=== PATIENT | female | born 1935 | race Caucasian/White ===

== ENCOUNTER 2022-03-01 17:36 | Inpatient (IN) ==
--- NOTE | 2022-03-01 17:59 | Emergency Department Note ---
Trauma HPI <Josh Estes PA-C - Last Filed: 03/01/22 19:11> General Chief Complaint: Trauma Stated Complaint: fall Time Seen by Provider: 03/01/22 17:52 Source: patient Mode of arrival: ambulatory History of Present Illness HPI Narrative: Narrative: 87-year-old female with a history of osteoporosis, chronic knee and back pain who is anticoagulated on Eliquis for "her heart". She was taking her afternoon walk with her dog when she lost her footing and fell onto her left side impacting her left shoulder. EMS says she hit her head she says she does not think she hit her head. She did not lose consciousness has had no confusion, nausea or vomiting. She has no contusion or deformity of her scalp. She states her hip and just above her knee on the left side her chief complaint. She has full range of motion in her left arm and has no bony tenderness anywhere other than her leg. Related Data Home Medications Medication Instructions Recorded Confirmed meclizine 12.5 mg tablet 12.5 mg PO QDAY 03/13/20 03/01/22 amiodarone 200 mg tablet 200 mg PO BID 01/28/22 03/01/22 gabapentin 100 mg capsule 100 mg PO .COMPLEX cap 01/28/22 03/01/22 memantine 10 mg tablet 10 mg PO BID 01/28/22 02/14/22 red yeast rice 600 mg capsule 600 mg PO QDAY 01/28/22 02/14/22 amlodipine 5 mg tablet 5 mg PO QDAY 02/14/22 03/01/22 apixaban 5 mg tablet (Eliquis) 5 mg PO QHS 02/14/22 03/01/22 levothyroxine 75 mcg tablet 75 mcg PO QDAY 02/14/22 03/01/22 memantine PO BID 03/01/22 Previous Rx's Medication Instructions Recorded diclofenac sodium 1 % topical gel 1 % TOPICAL QID #100 g 08/30/20 lidocaine 5 % topical patch 1 patch TOPICAL QDAY PRN #15 ea 02/14/22 Allergies Allergy/AdvReac Type Severity Reaction Status Date / Time No Known Drug Allergies Allergy Verified 02/14/22 10:02 Review of Systems <Josh Estes PA-C - Last Filed: 03/01/22 19:11> ROS ROS Narrative: Narrative: All systems ED: reviewed and negative except as stated. PFSH <Josh Estes PA-C - Last Filed: 03/01/22 19:11> Narrative Patient History Narrative: Narrative: Medical/Surgical/Family History All Active Problems (Updated 03/01/22 @ 19:11 by Josh Estes PA-C) Closed hip fracture (Acute) Right knee pain (Chronic) Chronic low back pain (Acute) Sore throat (Acute) Back pain, lumbosacral (Acute) No pertinent past surgical history (Chronic) Osteoporosis (Chronic) Chronic pain (Chronic) Peripheral neuropathy (Chronic) Acute bronchitis (Chronic) Knee effusion, left (Chronic) Hematoma of left lower extremity (Chronic) Medical History Acute bronchitis Chronic low back pain Chronic pain Hematoma of left lower extremity Knee effusion, left Osteoporosis Peripheral neuropathy Right knee pain Sore throat Surgical History No pertinent past surgical history Family History Other No pertinent family history Social History Smoking Status: Never smoker Alcohol Intake Frequency: does not drink Substance Use: does not use Exam <Josh Estes PA-C - Last Filed: 03/01/22 19:11> Narrative Narrative: Narrative: Gen: No acute distress Eyes: PERRL, no conjunctival injection , and symmetrical lids. Sclerae non icteric HENMT: Normocephalic Atraumatic head, external nose and ears. Moist MM. [place] no signs of trauma or impact of the head no hematoma on the posterior scalp Neck: Symmetric, trachea midline, no midline neck tenderness, full range of motion of the neck CVS: +S1/S2, No murmurs or gallops. Radial pulses 2+ and equal bilat. No swelling RESP: Unlabored respiratory effort . Clear to auscultation bilaterally (CTAB). No noted wheezes rales or ronchi. GI: Nontender/Nondistended (NTND), No focal tenderness MSK: Patient has deformity of the left hip and distal left femur. DP and PT are 2+ at the distal extremity. Patient has no sensation of the feet bilaterally but this is due to her chronic neuropathy. No deformity of the clavicles or shoulder. Skin: Warm, Dry . No rashes or lesions . Cap refill less than 2. Neuro: No focal neurological deficit Psych: Awake, Alert, & Oriented (AAO) x3. Appropriate mood and affect . Course <Josh Estes PA-C - Last Filed: 03/01/22 19:11> Vital Signs Vital signs: Vital Signs Temperature 97.6 F 03/01/22 17:43 Pulse Rate 78 03/01/22 17:43 Respiratory Rate 16 03/01/22 17:43 Blood Pressure 165/86 03/01/22 17:43 Pulse Oximetry (%) 97 03/01/22 17:43 Temperature 97.6 F 03/01/22 17:43 Pulse Rate 57 L 03/01/22 21:00 Respiratory Rate 16 03/01/22 19:45 Blood Pressure 129/66 03/01/22 21:00 Pulse Oximetry (%) 99 03/01/22 21:00 MDM <Josh Estes PA-C - Last Filed: 03/01/22 19:11> MDM Narrative Medical decision making narrative: Narrative: Patient had a fall on her afternoon walk. She did not impact her head but has a deformity of the left hip and left distal femur. She be evaluated with a hip and femur x-ray. She is pain controlled after being given fentanyl by EMS. She will be reevaluated after imaging. Left hip: Comminuted complex left hip fracture Femur: distal femur intact CXR: normal Patient has left hip fracture and we referred to Ortho. Dr. Jerome we consulted. Dr. Jerome: Admit to hospitalist n.p.o. after midnight EKG: Sinus rhythm at a rate of 73 bpm with prolonged PA interval at 300 ms. Right bundle branch block, no ST or T wave elevation or depression to suggest acute ischemia. Dr Pringle: Graciously agreed to accept the patient and requested we order an APTT in addition to the other lab work ordered. Patient will remain n.p.o. after midnight and will be followed on by Dr. Jerome tomorrow. Lab Data Result diagrams: 03/01/22 18:37 03/01/22 18:37 Labs: Lab Results 03/01/22 03/01/22 03/01/22 Range/Units 18:37 18:37 18:37 WBC 5.4 (4.5-11.0) K/mcL RBC 3.81 (3.59-5.38) M/mcL Hgb 12.4 (11.2-15.7) g/dL Hct 37.0 (34.1-44.9) % MCV 97.1 (80.0-100.0) fL MCH 32.5 (26.0-34.0) pg MCHC 33.5 (31.0-36.0) g/dL RDW 14.5 (11.5-14.5) % Plt Count 224 (140-440) K/mcL MPV 8.8 (7.4-10.4) fL Neut % (Auto) 51.9 (38.0-78.0) % Lymph % (Auto) 37.0 (15.5-49.0) % [place] % (Auto) 9.0 (1.0-12.0) % Eos % (Auto) 1.7 (0.0-7.0) % Baso % (Auto) 0.4 (0.0-2.0) % Lymph # (Auto) 2.01 (1.50-4.80) K/mcL [place] # (Auto) 0.49 (0.10-0.90) K/mcL Eos # (Auto) 0.09 (0.00-0.70) K/mcL Baso # (Auto) 0.02 (0.00-0.30) K/mcL Absolute Neutrophils 2.82 (1.80-8.00) K/mcL PT 13.6 (11.9-14.5) sec INR 1.0 (0.9-1.1) APTT (20.0-37.0) sec Sodium 140 (133-145) mmol/L Potassium 4.0 (3.3-5.1) mmol/L Chloride 105 (96-108) mmol/L Carbon Dioxide 24 (22-30) mmol/L Anion Gap 11.0 (8.0-16.0) BUN 11 (8-23) mg/dL Creatinine 0.8 (0.6-1.1) mg/dL GFR Calculation 65 Glucose 127 H (70-105) mg/dL Calcium 8.9 (8.6-10.4) mg/dL Total Bilirubin 0.2 (0.1-1.0) mg/dL AST 19 (<32) U/L ALT 16 (<40) U/L Alkaline Phosphatase 81 (39-117) U/L Total Protein 6.7 (5.9-8.4) gm/dL Albumin 4.2 (3.2-5.2) gm/dL Globulin 2.5 (2.2-3.7) gm/dL Albumin/Globulin Ratio 1.7 (1.0-2.3) Urine Color Urine Appearance (Clear) Urine pH (5.0-9.0) Ur Specific [place] (1.000-1.035) Urine Protein (Negative) mg/dL Urine Glucose (UA) (Negative) mg/dL Urine Ketones (Negative) mg/dL Urine Occult Blood (Negative) mg/dL Urine Nitrate (Negative) Urine Bilirubin (Negative) mg/dL Urine Urobilinogen mg/dL Ur Leukocyte Esterase (Negative) /uL Ur Culture Indicated? 03/01/22 03/01/22 Range/Units 18:37 19:06 WBC (4.5-11.0) K/mcL RBC (3.59-5.38) M/mcL Hgb (11.2-15.7) g/dL Hct (34.1-44.9) % MCV (80.0-100.0) fL MCH (26.0-34.0) pg MCHC (31.0-36.0) g/dL RDW (11.5-14.5) % Plt Count (140-440) K/mcL MPV (7.4-10.4) fL Neut % (Auto) (38.0-78.0) % Lymph % (Auto) (15.5-49.0) % [place] % (Auto) (1.0-12.0) % Eos % (Auto) (0.0-7.0) % Baso % (Auto) (0.0-2.0) % Lymph # (Auto) (1.50-4.80) K/mcL [place] # (Auto) (0.10-0.90) K/mcL Eos # (Auto) (0.00-0.70) K/mcL Baso # (Auto) (0.00-0.30) K/mcL Absolute Neutrophils (1.80-8.00) K/mcL PT (11.9-14.5) sec INR (0.9-1.1) APTT 29.5 (20.0-37.0) sec Sodium (133-145) mmol/L Potassium (3.3-5.1) mmol/L Chloride (96-108) mmol/L Carbon Dioxide (22-30) mmol/L Anion Gap (8.0-16.0) BUN (8-23) mg/dL Creatinine (0.6-1.1) mg/dL GFR Calculation Glucose (70-105) mg/dL Calcium (8.6-10.4) mg/dL Total Bilirubin (0.1-1.0) mg/dL AST (<32) U/L ALT (<40) U/L Alkaline Phosphatase (39-117) U/L Total Protein (5.9-8.4) gm/dL Albumin (3.2-5.2) gm/dL Globulin (2.2-3.7) gm/dL Albumin/Globulin Ratio (1.0-2.3) Urine Color Straw Urine Appearance Clear (Clear) Urine pH 9.0 (5.0-9.0) Ur Specific [place] 1.006 (1.000-1.035) Urine Protein Negative (Negative) mg/dL Urine Glucose (UA) Negative (Negative) mg/dL Urine Ketones Negative (Negative) mg/dL Urine Occult Blood Negative (Negative) mg/dL Urine Nitrate Negative (Negative) Urine Bilirubin Negative (Negative) mg/dL Urine Urobilinogen Negative mg/dL Ur Leukocyte Esterase Negative (Negative) /uL Ur Culture Indicated? No Discharge Plan Patient/Caregiver Discharge Instructions Pt seen by EXEC[employer]IVE [employer]/PA only: Yes Clinical Impression: Closed hip fracture Patient Disposition: Xfer As Inpt ([facility]) Discharge Date/Time: 03/01/22 21:51 Discharge Comment: to room 130 @2155
[2022-03-01] MEDS ORDERED: KETAMINE 10 MG/ML ML IV ONE (18:12)
--- NOTE | 2022-03-01 18:30 | XRay Report ---
CLINICAL INFORMATION: Preop COMPARISON: 02/20/2022 TECHNIQUE: Portable FINDINGS: The heart size, mediastinum and pulmonary vessels are unremarkable. Minor bibasilar fibrosis seen as before.. There are no effusions. The bones and soft tissues are within normal limits. IMPRESSION: Normal chest. Interpreted and Authenticated by: Bang Weber 03/01/22
--- NOTE | 2022-03-01 18:32 | XRay Report ---
CLINICAL INFORMATION: Trauma COMPARISON: None FINDINGS: Moderately comminuted obliquely oriented fracture through the subtrochanteric proximal femoral diaphysis appreciated. The distal fragment is displaced 1 cm anteriorly and medially. No significant angulation deformity. Moderate severe degeneration seen in the left hip. There is moderate degenerative change patellofemoral and tibiofemoral joints IMPRESSION: Mildly comminuted displaced oblique fracture of the proximal femoral diaphysis. Moderate to severe left hip degeneration Interpreted and Authenticated by: Bang Weber 03/01/22
--- NOTE | 2022-03-01 18:34 | XRay Report ---
CLINICAL INFORMATION: Trauma COMPARISON: None FINDINGS: Moderately comminuted obliquely oriented fracture through the subtrochanteric proximal left femoral diaphysis appreciated. The distal fragment is displaced 1 cm anteriorly and medially. No significant angulation deformity. Probable hairline fracture base of left superior pubic ramus also seen. Moderate/severe degeneration seen in both hips.. There is moderate degenerative change patellofemoral and tibiofemoral joints IMPRESSION: Mildly comminuted displaced oblique fracture of the proximal left femoral diaphysis. Moderate to severe bilateral hip degeneration Interpreted and Authenticated by: Bang Weber 03/01/22
[2022-03-01] MEDS: HYDROmorphone 0.5 MG/0.5 ML SYRINGE IV PRN ×2 (19:17→22:45)
[2022-03-01 19:25] LABS: ALT/SGPT 16 U/L (<40); AST/SGOT 19 U/L (<32); Albumin 4.2 gm/dL (3.2-5.2); Albumin/Globulin Ratio 1.7 (1.0-2.3); Alkaline Phosphatase 81 U/L (39-117); Bilirubin,Total 0.2 mg/dL (0.1-1.0); Blood Urea Nitrogen 11 mg/dL (8-23); Calcium 8.9 mg/dL (8.6-10.4); Carbon Dioxide 24 mmol/L (22-30); Chloride 105 mmol/L (96-108); Globulin 2.5 gm/dL (2.2-3.7); Glomerular Filtration Rate 65; Glucose 127 mg/dL (70-105)
[2022-03-01 19:44] LABS: Prothrombin Time 13.6 sec (11.9-14.5)
[2022-03-01 19:47] LABS: Basophils # (Auto) 0.02 K/mcL (0.00-0.30); Basophils % (Auto) 0.4 % (0.0-2.0); Eosinophils # (Auto) 0.09 K/mcL (0.00-0.70); Eosinophils % (Auto) 1.7 % (0.0-7.0); Hemoglobin 12.4 g/dL (11.2-15.7); Lymphocytes # (Auto) 2.01 K/mcL (1.50-4.80); Mean Cell Volume 97.1 fL (80.0-100.0); Mean Corpuscular HGB Conc 33.5 g/dL (31.0-36.0); Mean Platelet Volume 8.8 fL (7.4-10.4); Monocytes # (Auto) 0.49 K/mcL (0.10-0.90); Neutrophils % (Auto) 51.9 % (38.0-78.0); Platelet Count 224 K/mcL (140-440); RBC 3.81 M/mcL (3.59-5.38); Red Cell Distribution Width 14.5 % (11.5-14.5); WBC 5.4 K/mcL (4.5-11.0)
[2022-03-01] MEDS ORDERED: hydrALAZINE 20 MG/ML VIAL IV PRN (20:16)
[2022-03-01] MEDS ORDERED: traMADol 50 MG TABLET PO PRN (20:16)
[2022-03-01] MEDS ORDERED: DILTIAZEM 25 MG/5 ML VIAL IV PRN (20:16)
[2022-03-01] MEDS ORDERED: ONDANSETRON 4 MG/2 ML VIAL IV PRN (20:16)
[2022-03-01 20:22] LABS: Appearance,Urine CLEAR (Clear); Bilirubin,Urine Negative (Negative); Color,Urine STRAW; Culture Indicated,Urine No; Glucose,Urine (UA) Negative (Negative); Ketones,Urine Negative (Negative); Leukocyte Esterase,Urine Negative /uL (Negative); Nitrate,Urine Negative (Negative); Protein,Urine Negative (Negative); Specific Gravity,Urine 1.006 (1.000-1.035); Urine Blood Negative (Negative); Urobilinogen,Urine Negative
[2022-03-01] MEDS ORDERED: ACETAMINOPHEN 325 MG TABLET PO PRN (20:24)
[2022-03-01] MEDS ORDERED: NALOXONE HCL 0.4 MG/ML VIAL IV PRN (20:24)
[2022-03-01] MEDS ORDERED: PROCHLORPERAZINE 10 MG/2 ML VIAL IV PRN (20:24)
[2022-03-01] MEDS ORDERED: ALBUTEROL SULFATE 2.5 MG/3 ML NEBULIZER NEB PRN (20:24)
[2022-03-01] MEDS ORDERED: BISACODYL 10 MG SUPP.RECT PR PRN (20:24)
[2022-03-01] MEDS ORDERED: 0.9 % SODIUM CHLORIDE 1,000 ML IV SCH (20:30)
[2022-03-01] MEDS: SENNOSIDES 1 TABLET PO SCH (22:51)
[2022-03-01] MEDS: DOCUSATE SODIUM 100 MG CAPSULE PO SCH (22:51)
[2022-03-01] MEDS: AMIODARONE HCL 200 MG TABLET PO SCH (22:51)
[2022-03-01] MEDS: 0.9 % SODIUM CHLORIDE 10 ML SYRINGE IV SCH (22:52)
[2022-03-01] MEDS ORDERED: diphenhydrAMINE 50 MG/ML VIAL IV PRN (23:27)
[2022-03-02] MEDS: HYDROmorphone 0.5 MG/0.5 ML SYRINGE IV PRN ×3 (02:46→20:32)
[2022-03-02] MEDS: 0.9 % SODIUM CHLORIDE 10 ML SYRINGE IV SCH ×3 (05:09→21:07)
[2022-03-02 06:27] LABS: Basophils # (Auto) 0.02 K/mcL (0.00-0.30); Basophils % (Auto) 0.2 % (0.0-2.0); Eosinophils # (Auto) 0.02 K/mcL (0.00-0.70); Eosinophils % (Auto) 0.2 % (0.0-7.0); Hematocrit 36.2 % (34.1-44.9); Hemoglobin 11.4 g/dL (11.2-15.7); Lymphocytes # (Auto) 1.35 K/mcL (1.50-4.80); Lymphocytes % (Auto) 16.3 % (15.5-49.0); Mean Cell Volume 99.5 fL (80.0-100.0); Mean Corpuscular HGB Conc 31.5 g/dL (31.0-36.0); Mean Platelet Volume 8.9 fL (7.4-10.4); Monocytes # (Auto) 0.74 K/mcL (0.10-0.90); Monocytes % (Auto) 8.9 % (1.0-12.0); Neutrophils % (Auto) 74.4 % (38.0-78.0); Platelet Count 229 K/mcL (140-440); RBC 3.64 M/mcL (3.59-5.38); Red Cell Distribution Width 14.6 % (11.5-14.5); WBC 8.3 K/mcL (4.5-11.0)
[2022-03-02 06:50] LABS: ALT/SGPT 13 U/L (<40); AST/SGOT 16 U/L (<32); Albumin/Globulin Ratio 1.8 (1.0-2.3); Alkaline Phosphatase 72 U/L (39-117); Bilirubin,Total 0.5 mg/dL (0.1-1.0); Blood Urea Nitrogen 9 mg/dL (8-23); Calcium 8.4 mg/dL (8.6-10.4); Carbon Dioxide 24 mmol/L (22-30); Chloride 101 mmol/L (96-108); Globulin 2.2 gm/dL (2.2-3.7); Glomerular Filtration Rate 77; Glucose 143 mg/dL (70-105)
[2022-03-02] MEDS ORDERED: IPRATROPIUM/ALBUTEROL 3 ML AMPUL.NEB NEB PRN ×2 (08:00→09:12)
[2022-03-02] MEDS ORDERED: SCOPOLAMINE 1 PATCH PATCH TOPICAL PRN (08:00)
[2022-03-02] MEDS ORDERED: ceFAZolin 2 GM in DEXTROSE 5% IN WATER 50 ML IV SCH (08:30)
[2022-03-02] MEDS ORDERED: MAGNESIUM SULFATE 2 GM/50 ML BAG IV ONE (08:35)
[2022-03-02] MEDS ORDERED: DEXAMETHASONE 10 MG/ML VIAL ONE (08:35)
[2022-03-02] MEDS ORDERED: ePHEDrine 50 MG/5 ML SYRINGE (ANEST) IV ONE (08:35)
[2022-03-02] MEDS ORDERED: KETAMINE 50 MG/ML Syringe (ANEST) IV ONE (08:35)
[2022-03-02] MEDS ORDERED: ONDANSETRON 4 MG/2 ML VIAL ONE (08:35)
[2022-03-02] MEDS ORDERED: LIDOCAINE HCL/PF 100 MG/5 ML SYRINGE IV ONE (08:35)
[2022-03-02] MEDS ORDERED: TRANEXAMIC ACID 1,000 MG/10 ML VIAL ONE (08:35)
[2022-03-02] MEDS ORDERED: PROPOFOL 200 MG/20 ML VIAL IV ONE (08:35)
[2022-03-02] MEDS ORDERED: diphenhydrAMINE 50 MG/ML VIAL IV PRN (09:12)
[2022-03-02] MEDS ORDERED: PROMETHAZINE 25 MG/ML VIAL IV PRN (09:12)
[2022-03-02] MEDS ORDERED: MEPERIDINE 25 MG/ML VIAL IV PRN (09:12)
[2022-03-02] MEDS ORDERED: fentaNYL 100 MCG/2 ML VIAL IV PRN (09:12)
[2022-03-02] MEDS ORDERED: NALOXONE HCL 0.4 MG/ML VIAL IV PRN (09:12)
[2022-03-02] MEDS ORDERED: ONDANSETRON 4 MG/2 ML VIAL IV PRN (09:12)
[2022-03-02] MEDS ORDERED: LACTATED RINGERS 250 ML IV PRN (09:12)
[2022-03-02] MEDS ORDERED: LACTATED RINGERS 1,000 ML IV SCH (09:15)
--- NOTE | 2022-03-02 09:32 | Brief Operative Note ---
Brief Operative Note Date of procedure: 03/02/22 Pre-op diagnosis: Right hip reverse obliquity subtrochanteric femur fracture Post-op diagnosis: same Procedure: Open treatment internal fixation of right reverse obliquity subtrochanteric femur fracture w intramedullary fixation Grafts/Implants: Yes (long gamma nail, [id number] 125 deg nail, 90mm lag screw) Anesthesia: GLMA Findings: comminuted reverse obliquity subtrochanteric femur fracture Complications: none Surgeon: Eduard Jeroem Vice President For Philanthropy: Flaco Mckeon Estimated blood loss (cc): 100 Specimens Removed/Pathology: none sent Condition: stable Disposition: PACU
--- NOTE | 2022-03-02 09:33 | Internal Med History&Physical ---
HPI History of Present Illness Patient information: Note initiated : 03/01/22 at 9:32 pm Service Date, if different from initiated Date: 03/01/2022 Patient: Tammy Whelan 87 y/o F admitted on 03/01/22 for fall. Chief Complaint: [] History of present illness: Ms. Whelan is a 87 year old F This is an 87-year-old female with history of atrial fibrillation anticoagulated on amiodarone and apixaban, history osteoporosis, knee arthritis with chronic pain. Patient was walking outside with her dog and her " knee gave out" fell and started having severe hip pain and was brought to the ER. Patient underlying severe pain otherwise review of system was unremarkable denied any presyncope no altered mental status no history suggestive of any seizure. Her vital signs within normal limits lab work-up unremarkable other than low albumin levels and slightly elevated glucose level. Her hip x-ray showing displaced oblique fracture of the proximal left femoral diaphysis Review of systems Constitutional: No reported fatigue no chills, no fever Eyes: no vision changes or pain Cardiovascular: no chest pain, no palpitations Respiratory: no cough or dyspnea Gastrointestinal: no nausea and stil have abdominal discomfort. Genitourinary: no dysuria or difficulty voiding Musculoskeletal: Pain and distress with movements Integumentary: no skin lesion or wound Neurological: no focal weakness or numbness Psychiatric: no anxiety or depression Physical exam Head: No bruises, normal-appearing nontraumatic Eyes: normal appearance, no scleral icterus. Neck: full ROM Respiratory: no respiratory distress. Cardiovascular: normal rate and rhythm, S1, S2. GI/Abdominal: soft, nontender, no guarding. Extremities: Externally rotated and shortened Neurological: CN II-XII intact, intact motor, intact sensation. Psychiatric: normal mood. Skin: warm, normal color PFSH PFSH All Active Problems (Updated 03/01/22 @ 19:11 by Josh Estes PA-C) Closed hip fracture (Acute) Right knee pain (Chronic) Chronic low back pain (Acute) Sore throat (Acute) Back pain, lumbosacral (Acute) No pertinent past surgical history (Chronic) Osteoporosis (Chronic) Chronic pain (Chronic) Peripheral neuropathy (Chronic) Acute bronchitis (Chronic) Knee effusion, left (Chronic) Hematoma of left lower extremity (Chronic) Medical History Acute bronchitis Chronic low back pain Chronic pain Hematoma of left lower extremity Knee effusion, left Osteoporosis Peripheral neuropathy Right knee pain Sore throat Surgical History No pertinent past surgical history Family History Other No pertinent family history Social History (Updated 10/23/20 @ 09:42 by Soraida Hidalgo RN) alcohol intake frequency: does not drink substance use type: does not use MEDS/ALLERGIES Home Medications and Allergies Home Medications Medication Instructions Recorded Confirmed Type meclizine 12.5 mg tablet 12.5 mg PO QDAY 03/13/20 03/01/22 History diclofenac sodium 1 % topical gel 1 % TOPICAL QID #100 g 08/30/20 02/14/22 Rx amiodarone 200 mg tablet 200 mg PO BID 01/28/22 03/01/22 History gabapentin 100 mg capsule 100 mg PO .COMPLEX cap 01/28/22 03/01/22 History memantine 10 mg tablet 10 mg PO BID 01/28/22 02/14/22 History red yeast rice 600 mg capsule 600 mg PO QDAY 01/28/22 02/14/22 History amlodipine 5 mg tablet 5 mg PO QDAY 02/14/22 03/01/22 History apixaban 5 mg tablet (Eliquis) 5 mg PO QHS 02/14/22 03/01/22 History levothyroxine 75 mcg tablet 75 mcg PO QDAY 02/14/22 03/01/22 History lidocaine 5 % topical patch 1 patch TOPICAL QDAY PRN #15 ea 02/14/22 03/01/22 Rx memantine PO BID 03/01/22 History Allergies Allergy/AdvReac Type Severity Reaction Status Date / Time No Known Drug Allergies Allergy Verified 02/14/22 10:02 EXAM Constitutional Vitals: Temp Pulse Resp BP Pulse Ox 97.5 F 68 20 127/68 97 03/02/22 07:33 03/02/22 04:00 03/02/22 07:33 03/02/22 07:33 03/02/22 07:33 DATA Data Completed and Pending Labs: Labs from last 24 hours 0503/02/22 03/01/22 05:14 05:14 19:06 WBC 8.3 RBC 3.64 Hgb 11.4 Hct 36.2 MCV 99.5 MCH 31.3 MCHC 31.5 RDW 14.6 H Plt Count 229 MPV 8.9 Neut % (Auto) 74.4 Lymph % (Auto) 16.3 [place] % (Auto) 8.9 Eos % (Auto) 0.2 Baso % (Auto) 0.2 Lymph # (Auto) 1.35 L [place] # (Auto) 0.74 Eos # (Auto) 0.02 Baso # (Auto) 0.02 Absolute Neutrophils 6.17 PT INR APTT Sodium 135 Potassium 4.5 Chloride 101 Carbon Dioxide 24 Anion Gap 10.0 BUN 9 Creatinine 0.7 GFR Calculation 77 Glucose 143 H Calcium 8.4 L Magnesium 2.2 Total Bilirubin 0.5 AST 16 ALT 13 Alkaline Phosphatase 72 Total Protein 6.2 Albumin 4.0 Globulin 2.2 Albumin/Globulin Ratio 1.8 Urine Color Straw Urine Appearance Clear Urine pH 9.0 Ur Specific [place] 1.006 Urine Protein Negative Urine Glucose (UA) Negative Urine Ketones Negative Urine Occult Blood Negative Urine Nitrate Negative Urine Bilirubin Negative Urine Urobilinogen Negative Ur Leukocyte Esterase Negative Ur Culture Indicated? No 03/01/22 03/01/22 03/01/22 18:37 18:37 18:37 WBC RBC Hgb Hct MCV MCH MCHC RDW Plt Count MPV Neut % (Auto) Lymph % (Auto) [place] % (Auto) Eos % (Auto) Baso % (Auto) Lymph # (Auto) [place] # (Auto) Eos # (Auto) Baso # (Auto) Absolute Neutrophils PT 13.6 INR 1.0 APTT 29.5 Sodium 140 Potassium 4.0 Chloride 105 Carbon Dioxide 24 Anion Gap 11.0 BUN 11 Creatinine 0.8 GFR Calculation 65 Glucose 127 H Calcium 8.9 Magnesium Total Bilirubin 0.2 AST 19 ALT 16 Alkaline Phosphatase 81 Total Protein 6.7 Albumin 4.2 Globulin 2.5 Albumin/Globulin Ratio 1.7 Urine Color Urine Appearance Urine pH Ur Specific [place] Urine Protein Urine Glucose (UA) Urine Ketones Urine Occult Blood Urine Nitrate Urine Bilirubin Urine Urobilinogen Ur Leukocyte Esterase Ur Culture Indicated? 03/01/22 18:37 WBC 5.4 RBC 3.81 Hgb 12.4 Hct 37.0 MCV 97.1 MCH 32.5 MCHC 33.5 RDW 14.5 Plt Count 224 MPV 8.8 Neut % (Auto) 51.9 Lymph % (Auto) 37.0 [place] % (Auto) 9.0 Eos % (Auto) 1.7 Baso % (Auto) 0.4 Lymph # (Auto) 2.01 [place] # (Auto) 0.49 Eos # (Auto) 0.09 Baso # (Auto) 0.02 Absolute Neutrophils 2.82 PT INR APTT Sodium Potassium Chloride Carbon Dioxide Anion Gap BUN Creatinine GFR Calculation Glucose Calcium Magnesium Total Bilirubin AST ALT Alkaline Phosphatase Total Protein Albumin Globulin Albumin/Globulin Ratio Urine Color Urine Appearance Urine pH Ur Specific [place] Urine Protein Urine Glucose (UA) Urine Ketones Urine Occult Blood Urine Nitrate Urine Bilirubin Urine Urobilinogen Ur Leukocyte Esterase Ur Culture Indicated? A/P Narrative Plan of Treatment: Left femur fracture Mechanical fall History of atrial fibrillation anticoagulated and on amiodarone Denied any history ischemic disease No history of CKD, no known diabetes Plan ER physician discussed with orthopedic surgeon planning for surgery 03/02/2022 We will keep her n.p.o. IV fluid NS 75 mils per hour Telemetry monitoring We will continue the amiodarone last dose of Eliquis was this morning Patient is a moderate cardiovascular risk risk person for a moderate risk surgery Atrial fibrillation Chronic anticoagulation with Eliquis EKG did not show any ischemic changes No history of any syncope or dizziness no chest symptoms Telemetry monitoring Continue amiodarone Diltiazem as needed Holding anticoagulation the last dose was this morning Essential hypertension Monitor and restart home medications as needed DVT prophylaxis-was on Eliquis holding for the surgery CODE STATUS-full code Expect length of stay-2-3 midnights CPT code 81427 Time Spent With Patient Time: Total time spent is greater than 50% in coordination of care (as documented) at patient's floor/unit and/or counseling patient: Total time spent with greater than 50% in coordination of care (as documented) at patient's floor/unit and/or counseling patient:: 50 - 70 minutes Critical Care Time: No QUALITY Stroke Symptom Onset Unknown: No VTE Deep Vein Thrombosis/Pulmonary Embolism Present on Admission: No
[2022-03-02] MEDS ORDERED: morphine 4 MG/ML VIAL IV PRN (09:38)
[2022-03-02] MEDS ORDERED: HYDROcodone/APAP 5/325MG TABLET PO PRN (09:38)
[2022-03-02] MEDS: AMIODARONE HCL 200 MG TABLET PO SCH ×2 (09:51→20:26)
[2022-03-02] MEDS: GABAPENTIN 100 MG CAPSULE PO SCH (09:51)
[2022-03-02] MEDS: PANTOPRAZOLE 40 MG TABLET PO SCH (09:51)
[2022-03-02] MEDS: DOCUSATE SODIUM 100 MG CAPSULE PO SCH ×2 (09:51→20:26)
[2022-03-02] MEDS: amLODIPine 5 MG TABLET PO SCH (09:51)
[2022-03-02] MEDS: ACETAMINOPHEN 1,000 MG/100 ML BAG IV ONE ×2 (09:52→10:00)
[2022-03-02] MEDS: LEVOTHYROXINE 75 MCG TABLET PO SCH (09:52)
[2022-03-02] MEDS ORDERED: CHLORHEXIDINE GLUCONATE 473 ML BOTTLE TOPICAL SCH (11:00)
[2022-03-02] MEDS: LACTATED RINGERS 1,000 ML IV SCH ×2 (11:12→18:39)
--- NOTE | 2022-03-02 14:28 | XRay Report ---
CLINICAL INFORMATION: ORIF subtrochanteric fracture left hip COMPARISON: Preoperative films 03/01/2022 FINDINGS: Spiral fracture of the subtrochanteric abdomen has been reduced to near anatomic alignment and is transfixed by a long gamma nail. Moderate degeneration both hip and SI joints again seen. Soft tissue swelling over the surgical site. IMPRESSION: ORIF subtrochanteric spiral fracture left hip in near-anatomic alignment Interpreted and Authenticated by: Bang Weber 03/02/22
--- NOTE | 2022-03-02 14:41 | XRay Report ---
CLINICAL INFORMATION: ORIF subtrochanteric fracture left hip COMPARISON: Preoperative films 03/01/2022 FINDINGS: Digital images from the OR show spiral fracture of the subtrochanteric left hip reduced to near anatomic alignment and is transfixed by a long gamma nail. Soft tissue swelling over the surgical site. Fluoroscopy time 0.8 minutes IMPRESSION: ORIF subtrochanteric spiral fracture left hip in near-anatomic alignment Interpreted and Authenticated by: Bang Weber 03/02/22
[2022-03-02] MEDS: ceFAZolin 2 GM in DEXTROSE 5% IN WATER 50 ML IV SCH (16:07)
[2022-03-02] MEDS ORDERED: ceFAZolin 1 GM VIAL ONE (16:09)
[2022-03-02] MEDS: SENNOSIDES 1 TABLET PO SCH (20:26)
[2022-03-02] MEDS: MUPIROCIN OINT 2% 22GM NARES SCH (20:26)
[2022-03-02] MEDS ORDERED: GABAPENTIN 100 MG CAPSULE PO SCH (21:00)
[2022-03-03] MEDS: QUEtiapine 25 MG TABLET PO PRN ×2 (00:50→20:32)
[2022-03-03] MEDS: HYDROmorphone 0.5 MG/0.5 ML SYRINGE IV PRN (00:50)
[2022-03-03] MEDS: ceFAZolin 2 GM in DEXTROSE 5% IN WATER 50 ML IV SCH (00:50)
[2022-03-03] MEDS: LACTATED RINGERS 1,000 ML IV SCH (03:10)
[2022-03-03] MEDS: 0.9 % SODIUM CHLORIDE 10 ML SYRINGE IV SCH ×2 (04:30→15:14)
[2022-03-03 06:43] LABS: Basophils # (Auto) 0.01 K/mcL (0.00-0.30); Basophils % (Auto) 0.1 % (0.0-2.0); Eosinophils # (Auto) 0 K/mcL (0.00-0.70); Eosinophils % (Auto) 0 % (0.0-7.0); Hematocrit 27.9 % (34.1-44.9); Hemoglobin 8.8 g/dL (11.2-15.7); Lymphocytes # (Auto) 0.95 K/mcL (1.50-4.80); Lymphocytes % (Auto) 9.1 % (15.5-49.0); Mean Cell Volume 100.4 fL (80.0-100.0); Mean Corpuscular HGB Conc 31.5 g/dL (31.0-36.0); Mean Platelet Volume 9.3 fL (7.4-10.4); Monocytes # (Auto) 1.05 K/mcL (0.10-0.90); Neutrophils % (Auto) 80.8 % (38.0-78.0); Platelet Count 181 K/mcL (140-440); RBC 2.78 M/mcL (3.59-5.38); Red Cell Distribution Width 14.6 % (11.5-14.5); WBC 10.5 K/mcL (4.5-11.0)
[2022-03-03 07:12] LABS: ALT/SGPT 10 U/L (<40); AST/SGOT 13 U/L (<32); Albumin 3.2 gm/dL (3.2-5.2); Albumin/Globulin Ratio 1.5 (1.0-2.3); Alkaline Phosphatase 59 U/L (39-117); Bilirubin,Total 0.2 mg/dL (0.1-1.0); Blood Urea Nitrogen 13 mg/dL (8-23); Calcium 8.3 mg/dL (8.6-10.4); Carbon Dioxide 21 mmol/L (22-30); Chloride 102 mmol/L (96-108); Globulin 2.2 gm/dL (2.2-3.7); Glomerular Filtration Rate 81; Glucose 210 mg/dL (70-105)
[2022-03-03] MEDS: AMIODARONE HCL 200 MG TABLET PO SCH ×2 (08:49→20:32)
[2022-03-03] MEDS: amLODIPine 5 MG TABLET PO SCH (08:49)
[2022-03-03] MEDS: DOCUSATE SODIUM 100 MG CAPSULE PO SCH ×2 (08:50→20:32)
[2022-03-03] MEDS: LEVOTHYROXINE 75 MCG TABLET PO SCH (08:50)
[2022-03-03] MEDS: PANTOPRAZOLE 40 MG TABLET PO SCH (08:50)
[2022-03-03] MEDS: GABAPENTIN 100 MG CAPSULE PO SCH (08:50)
--- NOTE | 2022-03-03 09:31 | Internal Med Progress Note ---
SUBJECTIVE Subjective Patient information: Note initiated : 03/03/22 at 9:31 am Service Date, if different from initiated Date: [] Patient: Tammy Whelan 87 y/o F admitted on 03/01/22 for fall. Chief Complaint: [] Interval history: 87-year-old female with history of atrial fibrillation anticoagulated on amiodarone and apixaban, history osteoporosis, knee arthritis with chronic pain. Patient was walking outside with her dog and her " knee gave out" fell and started having severe hip pain and was brought to the ER. Patient underlying severe pain otherwise review of system was unremarkable denied any presyncope no altered mental status no history suggestive of any seizure. Her vital signs within normal limits lab work-up unremarkable other than low albumin levels and slightly elevated glucose level. Her hip x-ray showing displaced oblique fracture of the proximal left femoral diaphysis 03/03/2022 Patient underwent open duction internal fixation yesterday Postoperatively patient feeling better Continued having some intermittent pain Working with physical therapy We will restart her home apixaban dose tomorrow Patient probably needs subacute rehab Review of systems Constitutional: No reported fatigue no chills, no fever Eyes: no vision changes or pain Cardiovascular: no chest pain, no palpitations Respiratory: no cough or dyspnea Gastrointestinal: no nausea and stil have abdominal discomfort. Genitourinary: no dysuria or difficulty voiding Musculoskeletal: Pain improved postoperatively Integumentary: no skin lesion or wound Neurological: no focal weakness or numbness Psychiatric: no anxiety or depression Physical exam Head: No bruises, normal-appearing nontraumatic Eyes: normal appearance, no scleral icterus. Neck: full ROM Respiratory: no respiratory distress. Cardiovascular: normal rate and rhythm, S1, S2. GI/Abdominal: soft, nontender, no guarding. Extremities CDI no drainage Neurological: CN II-XII intact, intact motor, intact sensation. Psychiatric: normal mood. Skin: warm, normal color Constitutional Vitals: Vital Signs Temp Pulse Resp BP Pulse Ox 98.5 F 73 14 107/51 98 03/03/22 07:01 03/03/22 07:01 03/03/22 07:01 03/03/22 07:01 03/03/22 07:01 Period Temp Pulse Resp BP Sys/Castillo Pulse Ox Last 24 Hr 96.7 F-98.5 F 58-79 13-20 102-148/51-71 91-100 Intake and Output 03/02/22 03/03/22 03/03/22 21:59 05:59 13:59 Intake Total 688 693 8580 Output Total 375 450 Balance -119 -300 1999 Weight 71.622 kg Intake & Output: Intake & Output 03/02/22 03/03/22 03/03/22 21:59 05:59 13:59 Intake Total 987 054 2104 Output Total 375 450 Balance -119 -300 1999 Weight 71.622 kg Intake: IV 76 50 2000 Sodium Chloride 0.9% 1,000 ml @ 1000 75 mls/hr IV .[id number] ISAÍAS Rx#: [id number] Lactated Ringers 1,000 ml @ 75 26 1000 mls/hr IV .[id number] ISAÍAS Rx#: [id number] Ancef 2 gm In Dextrose 5% in 50 50 Water 50 ml @ 100 mls/hr IV Q8H ISAÍAS Rx#:[id number] Oral 180 100 Output: Urine Catheter Amount 375 450 Other: Urine Appearance Clear Clear Urine Color Straw Straw Urine Odor Normal OBJ DATA Labs CBC & Chem 7: 03/03/22 05:14 03/03/22 05:14 Labs: Abnormal Lab Results 03/03/22 03/03/22 03/02/22 05:14 05:14 05:14 RBC 2.78 L Hgb 8.8 L Hct 27.9 L MCV 100.4 H RDW 14.6 H Neut % (Auto) 80.8 H Lymph % (Auto) 9.1 L Lymph # (Auto) 0.95 L [place] # (Auto) 1.05 H Absolute Neutrophils 8.48 H Carbon Dioxide 21 L Glucose 210 H 143 H Calcium 8.3 L 8.4 L Total Protein 5.4 L 03/02/22 03/01/22 05:14 18:37 RBC Hgb Hct MCV RDW 14.6 H Neut % (Auto) Lymph % (Auto) Lymph # (Auto) 1.35 L [place] # (Auto) Absolute Neutrophils Carbon Dioxide Glucose 127 H Calcium Total Protein Meds: Medications Acetaminophen (Acetaminophen 325 Mg Tablet) 650 mg PO Q6HP PRN; Protocol PRN Reason: Per Pain Protocol/Fever > 101 Hydrocodone Bitart/Acetaminophen (Hydrocodone/Apap 5/325mg Tablet) 0 tab PO Q4HP PRN; Protocol PRN Reason: Per Pain Protocol Albuterol Sulfate (Albuterol Sulfate 2.5 Mg/3 Ml Nebulizer) 2.5 mg NEB Q2HP PRN PRN Reason: Shortness Of Breath Amiodarone HCl (Amiodarone Hcl 200 Mg Tablet) 200 mg PO BID [facility] Last Admin: 03/03/22 08:49 Dose: 200 mg Documented by: Amlodipine Besylate (Amlodipine 5 Mg Tablet) 5 mg PO QDAY [facility] Last Admin: 03/03/22 08:49 Dose: 5 mg Documented by: Apixaban (Apixaban 5 Mg Tablet) 5 mg PO QHS [facility] Bisacodyl (Bisacodyl 10 Mg Supp.Rect) 10 mg ME Q2-3DAYS PRN PRN Reason: Constipation Chlorhexidine Gluconate (Chlorhexidine Gluconate 473 Ml Bottle) 60 ml TOPICAL UD [facility] Diltiazem HCl (Diltiazem 25 Mg/5 Ml Vial) 10 mg IV Q4HP PRN PRN Reason: Tachyarrhythmias Diphenhydramine HCl (Diphenhydramine 50 Mg/Ml Vial) 25 mg IV Q6HP PRN PRN Reason: Allergic Symptoms Docusate Sodium (Docusate Sodium 100 Mg Capsule) 100 mg PO BID [facility] Last Admin: 03/03/22 08:50 Dose: 100 mg Documented by: Gabapentin (Gabapentin 100 Mg Capsule) 100 mg PO QAM [facility] Last Admin: 03/03/22 08:50 Dose: 100 mg Documented by: Hydralazine HCl (Hydralazine 20 Mg/Ml Vial) 10 mg IV Q4-6HP PRN PRN Reason: Hypertension Hydromorphone HCl (Hydromorphone 0.5 Mg/0.5 Ml Syringe) 0.5 mg IV Q2HP PRN; Protocol PRN Reason: Per Pain Protocol Last Admin: 03/03/22 00:50 Dose: 0.5 mg Documented by: Levothyroxine Sodium (Levothyroxine 75 Mcg Tablet) 75 mcg PO QDAY [facility] Last Admin: 03/03/22 08:50 Dose: 75 mcg Documented by: Melatonin (Melatonin 3 Mg Tablet) 3 mg PO HSP PRN PRN Reason: Insomnia Morphine Sulfate (Morphine 4 Mg/Ml Vial) 0 mg IV Q1HP PRN; Protocol PRN Reason: Per Pain Protocol Mupirocin (Mupirocin Oint 2% 22gm) 1 dose NARES BID [facility] Last Admin: 03/02/22 20:26 Dose: 1 dose Documented by: Naloxone HCl (Naloxone Hcl 0.4 Mg/Ml Vial) 0.1 mg IV Q2MIN PRN PRN Reason: Opiate Reversal Ondansetron HCl (Ondansetron 4 Mg/2 Ml Vial) 4 mg IV Q6HP PRN PRN Reason: Nausea And Vomiting Pantoprazole Sodium (Pantoprazole 40 Mg Tablet) 40 mg PO QAMAC [facility] Last Admin: 03/03/22 08:50 Dose: 40 mg Documented by: Prochlorperazine (Prochlorperazine 10 Mg/2 Ml Vial) 5 mg IV Q4HP PRN PRN Reason: Nausea And Vomiting Quetiapine Fumarate (Quetiapine 25 Mg Tablet) 12.5 mg PO HS PRN PRN Reason: iNSOMNIA-2nd option Last Admin: 03/03/22 00:50 Dose: 12.5 mg Documented by: Senna (Sennosides 1 Tablet) 2 tab PO HS [facility] Last Admin: 03/02/22 20:26 Dose: 2 tab Documented by: Sodium Chloride (0.9 % Sodium Chloride 10 Ml Syringe) 10 ml IV Q8 [facility] Last Admin: 03/03/22 04:30 Dose: Not Given Documented by: Tramadol HCl (Tramadol 50 Mg Tablet) 50 mg PO Q4-6HP PRN; Protocol PRN Reason: Pain A/P Narrative Plan of Treatment: Left femur fracture status post ORIF 03/02/2022 Mechanical fall History of atrial fibrillation anticoagulated and on amiodarone Denied any history ischemic disease No history of CKD, no known diabetes Plan ER physician discussed with orthopedic surgeon and underwent surgery 03/02/2022 Patient has good oral intake and will discontinue IV fluid NS 75 mils per hour Telemetry monitoring Continue amiodarone We will restart Eliquis on 03/04/2022 Atrial fibrillation Chronic anticoagulation with Eliquis EKG did not show any ischemic changes No history of any syncope or dizziness no chest symptoms Telemetry monitoring Continue amiodarone Diltiazem as needed Restart anticoagulation on 03/04/2022 Essential hypertension Monitor and restart home medications as needed DVT prophylaxis-we will restart Eliquis 03/04/2022 CODE STATUS-full code Time Spent With Patient Time: Total time spent is greater than 50% in coordination of care (as documented) at patient's floor/unit and/or counseling patient: QUALITY Stroke Symptom Onset Unknown: No VTE Deep Vein Thrombosis/Pulmonary Embolism Present on Admission: No
[2022-03-03] MEDS: MUPIROCIN OINT 2% 22GM NARES SCH ×2 (10:08→20:32)
--- NOTE | 2022-03-03 12:51 | Orthopedic Progress Note ---
SUBJECTIVE Subjective Patient information: Note initiated : 03/03/22 at 12:49 pm Service Date, if different from initiated Date: [] Patient: Tammy Whelan 87 y/o F admitted on 03/01/22 for fall. Chief Complaint: [] Interval history: pain not well controlled Constitutional Vitals: Vital Signs Temp Pulse Resp BP Pulse Ox 98.8 F 74 14 121/53 93 03/03/22 11:34 03/03/22 11:34 03/03/22 11:34 03/03/22 11:34 03/03/22 11:34 Period Temp Pulse Resp BP Sys/Castillo Pulse Ox Last 24 Hr 97 F-98.8 F 72-79 14-20 107-129/51-69 93-98 Intake and Output 03/02/22 03/03/22 03/03/22 21:59 05:59 13:59 Intake Total 155 548 1833 Output Total 375 450 Balance -119 -300 2000 Weight 157 lb 14.4 oz Intake & Output: Intake & Output 03/02/22 03/03/22 03/03/22 21:59 05:59 13:59 Intake Total 751 704 6410 Output Total 375 450 Balance -119 -300 2000 Weight 157 lb 14.4 oz Intake: IV 76 50 2000 Sodium Chloride 0.9% 1,000 ml @ 1000 75 mls/hr IV .[id number] ISAÍAS Rx#: [id number] Lactated Ringers 1,000 ml @ 75 26 1000 mls/hr IV .[id number] ISAÍAS Rx#: [id number] Ancef 2 gm In Dextrose 5% in 50 50 Water 50 ml @ 100 mls/hr IV Q8H ISAÍAS Rx#:[id number] Oral 180 100 Output: Urine Catheter Amount 375 450 Other: Urine Appearance Clear Clear Clear Urine Color Straw Straw Bright Yellow Urine Odor Normal General appearance: no acute distress Neurological Exam Neurological exam: Present alert and oriented X3 OBJ DATA Labs CBC & Chem 7: 03/03/22 05:14 03/03/22 05:14 Labs: Abnormal Lab Results 03/03/22 03/03/22 03/02/22 05:14 05:14 05:14 RBC 2.78 L Hgb 8.8 L Hct 27.9 L MCV 100.4 H RDW 14.6 H Neut % (Auto) 80.8 H Lymph % (Auto) 9.1 L Lymph # (Auto) 0.95 L [place] # (Auto) 1.05 H Absolute Neutrophils 8.48 H Carbon Dioxide 21 L Glucose 210 H 143 H Calcium 8.3 L 8.4 L Total Protein 5.4 L 03/02/22 03/01/22 05:14 18:37 RBC Hgb Hct MCV RDW 14.6 H Neut % (Auto) Lymph % (Auto) Lymph # (Auto) 1.35 L [place] # (Auto) Absolute Neutrophils Carbon Dioxide Glucose 127 H Calcium Total Protein Meds: Medications Acetaminophen (Acetaminophen 325 Mg Tablet) 650 mg PO Q6HP PRN; Protocol PRN Reason: Per Pain Protocol/Fever > 101 Hydrocodone Bitart/Acetaminophen (Hydrocodone/Apap 10/325mg Tablet) 1 - 2 tab PO Q4HP PRN; Protocol PRN Reason: Per Pain Protocol Albuterol Sulfate (Albuterol Sulfate 2.5 Mg/3 Ml Nebulizer) 2.5 mg NEB Q2HP PRN PRN Reason: Shortness Of Breath Amiodarone HCl (Amiodarone Hcl 200 Mg Tablet) 200 mg PO BID [facility] Last Admin: 03/03/22 08:49 Dose: 200 mg Documented by: Amlodipine Besylate (Amlodipine 5 Mg Tablet) 5 mg PO QDAY [facility] Last Admin: 03/03/22 08:49 Dose: 5 mg Documented by: Apixaban (Apixaban 5 Mg Tablet) 5 mg PO BID [facility] Bisacodyl (Bisacodyl 10 Mg Supp.Rect) 10 mg IN Q2-3DAYS PRN PRN Reason: Constipation Chlorhexidine Gluconate (Chlorhexidine Gluconate 473 Ml Bottle) 60 ml TOPICAL UD [facility] Diltiazem HCl (Diltiazem 25 Mg/5 Ml Vial) 10 mg IV Q4HP PRN PRN Reason: Tachyarrhythmias Diphenhydramine HCl (Diphenhydramine 50 Mg/Ml Vial) 25 mg IV Q6HP PRN PRN Reason: Allergic Symptoms Docusate Sodium (Docusate Sodium 100 Mg Capsule) 100 mg PO BID [facility] Last Admin: 03/03/22 08:50 Dose: 100 mg Documented by: Gabapentin (Gabapentin 100 Mg Capsule) 100 mg PO QAM [facility] Last Admin: 03/03/22 08:50 Dose: 100 mg Documented by: Hydralazine HCl (Hydralazine 20 Mg/Ml Vial) 10 mg IV Q4-6HP PRN PRN Reason: Hypertension Hydromorphone HCl (Hydromorphone 0.5 Mg/0.5 Ml Syringe) 0.5 mg IV Q2HP PRN; Protocol PRN Reason: Per Pain Protocol Last Admin: 03/03/22 00:50 Dose: 0.5 mg Documented by: Levothyroxine Sodium (Levothyroxine 75 Mcg Tablet) 75 mcg PO QDAY [facility] Last Admin: 03/03/22 08:50 Dose: 75 mcg Documented by: Melatonin (Melatonin 3 Mg Tablet) 3 mg PO HSP PRN PRN Reason: Insomnia Morphine Sulfate (Morphine 4 Mg/Ml Vial) 0 mg IV Q1HP PRN; Protocol PRN Reason: Per Pain Protocol Mupirocin (Mupirocin Oint 2% 22gm) 1 dose NARES BID [facility] Last Admin: 03/03/22 10:08 Dose: 1 dose Documented by: Naloxone HCl (Naloxone Hcl 0.4 Mg/Ml Vial) 0.1 mg IV Q2MIN PRN PRN Reason: Opiate Reversal Ondansetron HCl (Ondansetron 4 Mg/2 Ml Vial) 4 mg IV Q6HP PRN PRN Reason: Nausea And Vomiting Pantoprazole Sodium (Pantoprazole 40 Mg Tablet) 40 mg PO QAMAC [facility] Last Admin: 03/03/22 08:50 Dose: 40 mg Documented by: Prochlorperazine (Prochlorperazine 10 Mg/2 Ml Vial) 5 mg IV Q4HP PRN PRN Reason: Nausea And Vomiting Quetiapine Fumarate (Quetiapine 25 Mg Tablet) 12.5 mg PO HS PRN PRN Reason: iNSOMNIA-2nd option Last Admin: 03/03/22 00:50 Dose: 12.5 mg Documented by: Senna (Sennosides 1 Tablet) 2 tab PO HS [facility] Last Admin: 03/02/22 20:26 Dose: 2 tab Documented by: Sodium Chloride (0.9 % Sodium Chloride 10 Ml Syringe) 10 ml IV Q8 [facility] Last Admin: 03/03/22 04:30 Dose: Not Given Documented by: Tramadol HCl (Tramadol 50 Mg Tablet) 50 mg PO Q4-6HP PRN; Protocol PRN Reason: Pain A/P Assessment and plan (1) Closed hip fracture: Assessment and plan: POD#1-stable but pain not well controlled Plan: -switch to norco 10's -mobilize -d/c plan Status: Acute Narrative Plan of Treatment: Left femur fracture status post ORIF 03/02/2022 Mechanical fall History of atrial fibrillation anticoagulated and on amiodarone Denied any history ischemic disease No history of CKD, no known diabetes Plan ER physician discussed with orthopedic surgeon and underwent surgery 03/02/2022 Patient has good oral intake and will discontinue IV fluid NS 75 mils per hour Telemetry monitoring Continue amiodarone We will restart Eliquis on 03/04/2022 Atrial fibrillation Chronic anticoagulation with Eliquis EKG did not show any ischemic changes No history of any syncope or dizziness no chest symptoms Telemetry monitoring Continue amiodarone Diltiazem as needed Restart anticoagulation on 03/04/2022 Essential hypertension Monitor and restart home medications as needed DVT prophylaxis-we will restart Eliquis 03/04/2022 CODE STATUS-full code Time Spent With Patient Time: Total time spent is greater than 50% in coordination of care (as documented) at patient's floor/unit and/or counseling patient:
[2022-03-03] MEDS: HYDROcodone/APAP 10/325MG TABLET PO PRN (20:32)
[2022-03-03] MEDS: MELATONIN 3 MG TABLET PO PRN (20:32)
[2022-03-03] MEDS: SENNOSIDES 1 TABLET PO SCH (20:33)
[2022-03-04 06:57] LABS: Basophils # (Auto) 0.02 K/mcL (0.00-0.30); Basophils % (Auto) 0.2 % (0.0-2.0); Eosinophils # (Auto) 0.04 K/mcL (0.00-0.70); Eosinophils % (Auto) 0.4 % (0.0-7.0); Hematocrit 26.4 % (34.1-44.9); Hemoglobin 8.4 g/dL (11.2-15.7); Lymphocytes # (Auto) 1.43 K/mcL (1.50-4.80); Mean Cell Volume 99.6 fL (80.0-100.0); Mean Corpuscular HGB Conc 31.8 g/dL (31.0-36.0); Mean Platelet Volume 9.5 fL (7.4-10.4); Monocytes # (Auto) 0.99 K/mcL (0.10-0.90); Monocytes % (Auto) 10.4 % (1.0-12.0); Platelet Count 201 K/mcL (140-440); RBC 2.65 M/mcL (3.59-5.38); Red Cell Distribution Width 15.2 % (11.5-14.5); WBC 9.5 K/mcL (4.5-11.0)
[2022-03-04] MEDS: PANTOPRAZOLE 40 MG TABLET PO SCH (07:25)
[2022-03-04 07:44] LABS: ALT/SGPT 8 U/L (<40); AST/SGOT 15 U/L (<32); Albumin 3.4 gm/dL (3.2-5.2); Albumin/Globulin Ratio 1.6 (1.0-2.3); Alkaline Phosphatase 58 U/L (39-117); Bilirubin,Total 0.3 mg/dL (0.1-1.0); Blood Urea Nitrogen 12 mg/dL (8-23); Calcium 8.4 mg/dL (8.6-10.4); Carbon Dioxide 27 mmol/L (22-30); Chloride 104 mmol/L (96-108); Globulin 2.1 gm/dL (2.2-3.7); Glomerular Filtration Rate 77; Glucose 161 mg/dL (70-105)
[2022-03-04] MEDS: HYDROcodone/APAP 10/325MG TABLET PO PRN ×2 (08:01→19:10)
[2022-03-04] MEDS: LEVOTHYROXINE 75 MCG TABLET PO SCH (09:40)
[2022-03-04] MEDS: GABAPENTIN 100 MG CAPSULE PO SCH (09:40)
[2022-03-04] MEDS: amLODIPine 5 MG TABLET PO SCH (09:40)
[2022-03-04] MEDS: MUPIROCIN OINT 2% 22GM NARES SCH ×2 (09:40→21:56)
[2022-03-04] MEDS: DOCUSATE SODIUM 100 MG CAPSULE PO SCH ×2 (09:40→21:55)
[2022-03-04] MEDS: AMIODARONE HCL 200 MG TABLET PO SCH ×2 (09:40→21:56)
--- NOTE | 2022-03-04 12:12 | Internal Med Progress Note ---
SUBJECTIVE Subjective Patient information: Note initiated : 03/04/22 at 12:11 pm Service Date, if different from initiated Date: [] Patient: Tammy Whelan 87 y/o F admitted on 03/01/22 for fall. Chief Complaint: [] Interval history: 87-year-old female with history of atrial fibrillation anticoagulated on amiodarone and apixaban, history osteoporosis, knee arthritis with chronic pain. Patient was walking outside with her dog and her " knee gave out" fell and started having severe hip pain and was brought to the ER. Patient underlying severe pain otherwise review of system was unremarkable denied any presyncope no altered mental status no history suggestive of any seizure. Her vital signs within normal limits lab work-up unremarkable other than low albumin levels and slightly elevated glucose level. Her hip x-ray showing displaced oblique fracture of the proximal left femoral diaphysis 03/03/2022 Patient underwent open duction internal fixation yesterday Postoperatively patient feeling better Continued having some intermittent pain Working with physical therapy We will restart her home apixaban dose tomorrow Patient probably needs subacute rehab 03/04 Patient worked with physical therapy progressing well Pain control switched to p.o. [place] Patient needing subacute rehab Review of systems Cardiovascular: no chest pain, no palpitations Respiratory: no cough or dyspnea Gastrointestinal: no nausea and stil have abdominal discomfort. Musculoskeletal: Pain improved postoperatively Integumentary: no skin lesion or wound Neurological: no focal weakness or numbness Psychiatric: no anxiety or depression Physical exam Respiratory: no respiratory distress. Cardiovascular: normal rate and rhythm, S1, S2. GI/Abdominal: soft, nontender, no guarding. Extremities CDI no drainage Neurological: CN II-XII intact, intact motor, intact sensation. Psychiatric: normal mood. Constitutional Vitals: Vital Signs Temp Pulse Resp BP Pulse Ox 97 F 73 18 128/72 95 03/04/22 11:48 03/04/22 11:48 03/04/22 11:48 03/04/22 11:48 03/04/22 11:48 Period Temp Pulse Resp BP Sys/Castillo Pulse Ox Last 24 Hr 97 F-98.9 F 70-80 14-18 114-134/59-79 93-95 Intake and Output 03/03/22 03/04/22 03/04/22 21:59 05:59 13:59 Intake Total 500 0 Output Total 750 450 Balance -250 -450 Weight 72.711 kg Intake & Output: Intake & Output 03/03/22 03/04/22 03/04/22 21:59 05:59 13:59 Intake Total 500 0 Output Total 750 450 Balance -250 -450 Weight 72.711 kg Intake: Oral 500 0 Output: Urine Catheter Amount 750 450 Other: Meal Breakfast Percent of Meal Consumed 0% Urine Appearance Clear Clear Urine Color Straw Straw Urine Odor Normal Normal OBJ DATA Labs CBC & Chem 7: 03/04/22 05:40 03/04/22 05:40 Labs: Abnormal Lab Results 03/04/22 03/04/22 03/03/22 05:40 05:40 05:14 RBC 2.65 L Hgb 8.4 L Hct 26.4 L MCV RDW 15.2 H Neut % (Auto) Lymph % (Auto) 15.0 L Lymph # (Auto) 1.43 L [place] # (Auto) 0.99 H Absolute Neutrophils Carbon Dioxide 21 L Glucose 161 H 210 H Calcium 8.4 L 8.3 L Total Protein 5.5 L 5.4 L Globulin 2.1 L 03/03/22 03/02/22 03/02/22 05:14 05:14 05:14 RBC 2.78 L Hgb 8.8 L Hct 27.9 L MCV 100.4 H RDW 14.6 H 14.6 H Neut % (Auto) 80.8 H Lymph % (Auto) 9.1 L Lymph # (Auto) 0.95 L 1.35 L [place] # (Auto) 1.05 H Absolute Neutrophils 8.48 H Carbon Dioxide Glucose 143 H Calcium 8.4 L Total Protein Globulin 03/01/22 18:37 RBC Hgb Hct MCV RDW Neut % (Auto) Lymph % (Auto) Lymph # (Auto) [place] # (Auto) Absolute Neutrophils Carbon Dioxide Glucose 127 H Calcium Total Protein Globulin Meds: Medications Acetaminophen (Acetaminophen 325 Mg Tablet) 650 mg PO Q6HP PRN; Protocol PRN Reason: Per Pain Protocol/Fever > 101 Hydrocodone Bitart/Acetaminophen (Hydrocodone/Apap 10/325mg Tablet) 1 - 2 tab PO Q4HP PRN; Protocol PRN Reason: Per Pain Protocol Last Admin: 03/04/22 08:01 Dose: 1 tab Documented by: Albuterol Sulfate (Albuterol Sulfate 2.5 Mg/3 Ml Nebulizer) 2.5 mg NEB Q2HP PRN PRN Reason: Shortness Of Breath Amiodarone HCl (Amiodarone Hcl 200 Mg Tablet) 200 mg PO BID [facility] Last Admin: 03/04/22 09:40 Dose: 200 mg Documented by: Amlodipine Besylate (Amlodipine 5 Mg Tablet) 5 mg PO QDAY [facility] Last Admin: 03/04/22 09:40 Dose: 5 mg Documented by: Apixaban (Apixaban 5 Mg Tablet) 5 mg PO BID [facility] Bisacodyl (Bisacodyl 10 Mg Supp.Rect) 10 mg MT Q2-3DAYS PRN PRN Reason: Constipation Chlorhexidine Gluconate (Chlorhexidine Gluconate 473 Ml Bottle) 60 ml TOPICAL UD [facility] Diltiazem HCl (Diltiazem 25 Mg/5 Ml Vial) 10 mg IV Q4HP PRN PRN Reason: Tachyarrhythmias Diphenhydramine HCl (Diphenhydramine 50 Mg/Ml Vial) 25 mg IV Q6HP PRN PRN Reason: Allergic Symptoms Docusate Sodium (Docusate Sodium 100 Mg Capsule) 100 mg PO BID [facility] Last Admin: 03/04/22 09:40 Dose: 100 mg Documented by: Gabapentin (Gabapentin 100 Mg Capsule) 100 mg PO QAM [facility] Last Admin: 03/04/22 09:40 Dose: 100 mg Documented by: Hydralazine HCl (Hydralazine 20 Mg/Ml Vial) 10 mg IV Q4-6HP PRN PRN Reason: Hypertension Hydromorphone HCl (Hydromorphone 0.5 Mg/0.5 Ml Syringe) 0.5 mg IV Q2HP PRN; Protocol PRN Reason: Per Pain Protocol Last Admin: 03/03/22 00:50 Dose: 0.5 mg Documented by: Levothyroxine Sodium (Levothyroxine 75 Mcg Tablet) 75 mcg PO QDAY [facility] Last Admin: 03/04/22 09:40 Dose: 75 mcg Documented by: Melatonin (Melatonin 3 Mg Tablet) 3 mg PO HSP PRN PRN Reason: Insomnia Last Admin: 03/03/22 20:32 Dose: 3 mg Documented by: Morphine Sulfate (Morphine 4 Mg/Ml Vial) 0 mg IV Q1HP PRN; Protocol PRN Reason: Per Pain Protocol Mupirocin (Mupirocin Oint 2% 22gm) 1 dose NARES BID [facility] Last Admin: 03/04/22 09:40 Dose: 1 dose Documented by: Naloxone HCl (Naloxone Hcl 0.4 Mg/Ml Vial) 0.1 mg IV Q2MIN PRN PRN Reason: Opiate Reversal Ondansetron HCl (Ondansetron 4 Mg/2 Ml Vial) 4 mg IV Q6HP PRN PRN Reason: Nausea And Vomiting Pantoprazole Sodium (Pantoprazole 40 Mg Tablet) 40 mg PO QAMAC [facility] Last Admin: 03/04/22 07:25 Dose: 40 mg Documented by: Prochlorperazine (Prochlorperazine 10 Mg/2 Ml Vial) 5 mg IV Q4HP PRN PRN Reason: Nausea And Vomiting Quetiapine Fumarate (Quetiapine 25 Mg Tablet) 12.5 mg PO HS PRN PRN Reason: iNSOMNIA-2nd option Last Admin: 03/03/22 20:32 Dose: 12.5 mg Documented by: Senna (Sennosides 1 Tablet) 2 tab PO HS [facility] Last Admin: 03/03/22 20:33 Dose: 2 tab Documented by: Tramadol HCl (Tramadol 50 Mg Tablet) 50 mg PO Q4-6HP PRN; Protocol PRN Reason: Pain Last Admin: 03/03/22 20:32 Dose: 50 mg Documented by: A/P Narrative Plan of Treatment: Left femur fracture status post ORIF 03/02/2022 Mechanical fall History of atrial fibrillation anticoagulated and on amiodarone Denied any history ischemic disease No history of CKD, no known diabetes Plan ER physician discussed with orthopedic surgeon and underwent surgery 03/02/2022 Patient has good oral intake and will discontinue IV fluid NS 75 mils per hour Telemetry monitoring Continue amiodarone We will restart Eliquis on 03/04/2022 pain control with norco 10 need SNF Atrial fibrillation Chronic anticoagulation with Eliquis EKG did not show any ischemic changes No history of any syncope or dizziness no chest symptoms Telemetry monitoring Continue amiodarone Diltiazem as needed Restart anticoagulation on 03/04/2022 Essential hypertension Monitor and restart home medications as needed DVT prophylaxis-we will restart Eliquis 03/04/2022 CODE STATUS-full code Time Spent With Patient Time: Total time spent is greater than 50% in coordination of care (as documented) at patient's floor/unit and/or counseling patient: QUALITY Stroke Symptom Onset Unknown: No VTE Deep Vein Thrombosis/Pulmonary Embolism Present on Admission: No
--- NOTE | 2022-03-04 12:47 | Orthopedic Progress Note ---
SUBJECTIVE Subjective Patient information: Note initiated : 03/04/22 at 12:45 pm Service Date, if different from initiated Date: [] Patient: Tammy Whelan 87 y/o F admitted on 03/01/22 for fall. Chief Complaint: [] Interval history: pain w wt bearing, better than yesterday Constitutional Vitals: Vital Signs Temp Pulse Resp BP Pulse Ox 97 F 73 18 128/72 95 03/04/22 11:48 03/04/22 11:48 03/04/22 11:48 03/04/22 11:48 03/04/22 11:48 Period Temp Pulse Resp BP Sys/Castillo Pulse Ox Last 24 Hr 97 F-98.9 F 70-80 14-18 114-134/59-79 93-95 Intake and Output 03/03/22 03/04/22 03/04/22 21:59 05:59 13:59 Intake Total 500 0 Output Total 750 450 Balance -250 -450 Weight 160 lb 4.8 oz Intake & Output: Intake & Output 03/03/22 03/04/22 03/04/22 21:59 05:59 13:59 Intake Total 500 0 Output Total 750 450 Balance -250 -450 Weight 160 lb 4.8 oz Intake: Oral 500 0 Output: Urine Catheter Amount 750 450 Other: Meal Breakfast Percent of Meal Consumed 0% Urine Appearance Clear Clear Urine Color Straw Straw Urine Odor Normal Normal General appearance: no acute distress OBJ DATA Labs CBC & Chem 7: 03/04/22 05:40 03/04/22 05:40 Labs: Abnormal Lab Results 03/04/22 03/04/22 03/03/22 05:40 05:40 05:14 RBC 2.65 L Hgb 8.4 L Hct 26.4 L MCV RDW 15.2 H Neut % (Auto) Lymph % (Auto) 15.0 L Lymph # (Auto) 1.43 L [place] # (Auto) 0.99 H Absolute Neutrophils Carbon Dioxide 21 L Glucose 161 H 210 H Calcium 8.4 L 8.3 L Total Protein 5.5 L 5.4 L Globulin 2.1 L 03/03/22 03/02/22 03/02/22 05:14 05:14 05:14 RBC 2.78 L Hgb 8.8 L Hct 27.9 L MCV 100.4 H RDW 14.6 H 14.6 H Neut % (Auto) 80.8 H Lymph % (Auto) 9.1 L Lymph # (Auto) 0.95 L 1.35 L [place] # (Auto) 1.05 H Absolute Neutrophils 8.48 H Carbon Dioxide Glucose 143 H Calcium 8.4 L Total Protein Globulin 03/01/22 18:37 RBC Hgb Hct MCV RDW Neut % (Auto) Lymph % (Auto) Lymph # (Auto) [place] # (Auto) Absolute Neutrophils Carbon Dioxide Glucose 127 H Calcium Total Protein Globulin Meds: Medications Acetaminophen (Acetaminophen 325 Mg Tablet) 650 mg PO Q6HP PRN; Protocol PRN Reason: Per Pain Protocol/Fever > 101 Hydrocodone Bitart/Acetaminophen (Hydrocodone/Apap 10/325mg Tablet) 1 - 2 tab PO Q4HP PRN; Protocol PRN Reason: Per Pain Protocol Last Admin: 03/04/22 08:01 Dose: 1 tab Documented by: Albuterol Sulfate (Albuterol Sulfate 2.5 Mg/3 Ml Nebulizer) 2.5 mg NEB Q2HP PRN PRN Reason: Shortness Of Breath Amiodarone HCl (Amiodarone Hcl 200 Mg Tablet) 200 mg PO BID [facility] Last Admin: 03/04/22 09:40 Dose: 200 mg Documented by: Amlodipine Besylate (Amlodipine 5 Mg Tablet) 5 mg PO QDAY [facility] Last Admin: 03/04/22 09:40 Dose: 5 mg Documented by: Apixaban (Apixaban 5 Mg Tablet) 5 mg PO BID [facility] Bisacodyl (Bisacodyl 10 Mg Supp.Rect) [address] Q2-3DAYS PRN PRN Reason: Constipation Chlorhexidine Gluconate (Chlorhexidine Gluconate 473 Ml Bottle) 60 ml TOPICAL UD [facility] Diltiazem HCl (Diltiazem 25 Mg/5 Ml Vial) 10 mg IV Q4HP PRN PRN Reason: Tachyarrhythmias Diphenhydramine HCl (Diphenhydramine 50 Mg/Ml Vial) 25 mg IV Q6HP PRN PRN Reason: Allergic Symptoms Docusate Sodium (Docusate Sodium 100 Mg Capsule) 100 mg PO BID [facility] Last Admin: 03/04/22 09:40 Dose: 100 mg Documented by: Gabapentin (Gabapentin 100 Mg Capsule) 100 mg PO QAM [facility] Last Admin: 03/04/22 09:40 Dose: 100 mg Documented by: Hydralazine HCl (Hydralazine 20 Mg/Ml Vial) 10 mg IV Q4-6HP PRN PRN Reason: Hypertension Hydromorphone HCl (Hydromorphone 0.5 Mg/0.5 Ml Syringe) 0.5 mg IV Q2HP PRN; Protocol PRN Reason: Per Pain Protocol Last Admin: 03/03/22 00:50 Dose: 0.5 mg Documented by: Levothyroxine Sodium (Levothyroxine 75 Mcg Tablet) 75 mcg PO QDAY [facility] Last Admin: 03/04/22 09:40 Dose: 75 mcg Documented by: Melatonin (Melatonin 3 Mg Tablet) 3 mg PO HSP PRN PRN Reason: Insomnia Last Admin: 03/03/22 20:32 Dose: 3 mg Documented by: Morphine Sulfate (Morphine 4 Mg/Ml Vial) 0 mg IV Q1HP PRN; Protocol PRN Reason: Per Pain Protocol Mupirocin (Mupirocin Oint 2% 22gm) 1 dose NARES BID [facility] Last Admin: 03/04/22 09:40 Dose: 1 dose Documented by: Naloxone HCl (Naloxone Hcl 0.4 Mg/Ml Vial) 0.1 mg IV Q2MIN PRN PRN Reason: Opiate Reversal Ondansetron HCl (Ondansetron 4 Mg/2 Ml Vial) 4 mg IV Q6HP PRN PRN Reason: Nausea And Vomiting Pantoprazole Sodium (Pantoprazole 40 Mg Tablet) 40 mg PO QAMAC [facility] Last Admin: 03/04/22 07:25 Dose: 40 mg Documented by: Prochlorperazine (Prochlorperazine 10 Mg/2 Ml Vial) 5 mg IV Q4HP PRN PRN Reason: Nausea And Vomiting Quetiapine Fumarate (Quetiapine 25 Mg Tablet) 12.5 mg PO HS PRN PRN Reason: iNSOMNIA-2nd option Last Admin: 03/03/22 20:32 Dose: 12.5 mg Documented by: Senna (Sennosides 1 Tablet) 2 tab PO HS [facility] Last Admin: 03/03/22 20:33 Dose: 2 tab Documented by: Tramadol HCl (Tramadol 50 Mg Tablet) 50 mg PO Q4-6HP PRN; Protocol PRN Reason: Pain Last Admin: 03/03/22 20:32 Dose: 50 mg Documented by: A/P Assessment and plan (1) Closed hip fracture: Assessment and plan: POD#2-stable Plan: ok to d/c to snf from ortho standpoint -TTWB LLE -place silver dressing, may shower -helder out 14 days postop -f/u ortho 6 weeks -dvt prophylaxis per hospitalist Status: Acute Narrative Plan of Treatment: Left femur fracture status post ORIF 03/02/2022 Mechanical fall History of atrial fibrillation anticoagulated and on amiodarone Denied any history ischemic disease No history of CKD, no known diabetes Plan ER physician discussed with orthopedic surgeon and underwent surgery 03/02/2022 Patient has good oral intake and will discontinue IV fluid NS 75 mils per hour Telemetry monitoring Continue amiodarone We will restart Eliquis on 03/04/2022 pain control with norco 10 need SNF Atrial fibrillation Chronic anticoagulation with Eliquis EKG did not show any ischemic changes No history of any syncope or dizziness no chest symptoms Telemetry monitoring Continue amiodarone Diltiazem as needed Restart anticoagulation on 03/04/2022 Essential hypertension Monitor and restart home medications as needed DVT prophylaxis-we will restart Eliquis 03/04/2022 CODE STATUS-full code Time Spent With Patient Time: Total time spent is greater than 50% in coordination of care (as documented) at patient's floor/unit and/or counseling patient:
[2022-03-04] MEDS: APIXABAN 5 MG TABLET PO SCH (21:55)
[2022-03-04] MEDS: MELATONIN 3 MG TABLET PO PRN (21:55)
[2022-03-04] MEDS: SENNOSIDES 1 TABLET PO SCH (21:55)
[2022-03-05 06:36] LABS: Basophils # (Auto) 0.02 K/mcL (0.00-0.30); Basophils % (Auto) 0.2 % (0.0-2.0); Eosinophils # (Auto) 0.03 K/mcL (0.00-0.70); Eosinophils % (Auto) 0.3 % (0.0-7.0); Hematocrit 26.7 % (34.1-44.9); Hemoglobin 8.3 g/dL (11.2-15.7); Lymphocytes # (Auto) 1.57 K/mcL (1.50-4.80); Lymphocytes % (Auto) 17.2 % (15.5-49.0); Mean Cell Volume 102.7 fL (80.0-100.0); Mean Corpuscular HGB Conc 31.1 g/dL (31.0-36.0); Mean Platelet Volume 9.4 fL (7.4-10.4); Monocytes # (Auto) 1.02 K/mcL (0.10-0.90); Monocytes % (Auto) 11.2 % (1.0-12.0); Neutrophils % (Auto) 71.1 % (38.0-78.0); Platelet Count 226 K/mcL (140-440); Red Cell Distribution Width 14.7 % (11.5-14.5); WBC 9.1 K/mcL (4.5-11.0)
[2022-03-05 07:04] LABS: ALT/SGPT 9 U/L (<40); AST/SGOT 15 U/L (<32); Albumin 3.1 gm/dL (3.2-5.2); Albumin/Globulin Ratio 1.3 (1.0-2.3); Alkaline Phosphatase 65 U/L (39-117); Bilirubin,Total 0.6 mg/dL (0.1-1.0); Blood Urea Nitrogen 9 mg/dL (8-23); Calcium 8.5 mg/dL (8.6-10.4); Carbon Dioxide 28 mmol/L (22-30); Chloride 100 mmol/L (96-108); Globulin 2.4 gm/dL (2.2-3.7); Glomerular Filtration Rate 77; Glucose 167 mg/dL (70-105)
[2022-03-05] MEDS: HYDROcodone/APAP 10/325MG TABLET PO PRN (07:11)
[2022-03-05] MEDS: PANTOPRAZOLE 40 MG TABLET PO SCH (07:11)
[2022-03-05] MEDS: MUPIROCIN OINT 2% 22GM NARES SCH (08:55)
[2022-03-05] MEDS: APIXABAN 5 MG TABLET PO SCH (08:55)
[2022-03-05] MEDS: DOCUSATE SODIUM 100 MG CAPSULE PO SCH (08:55)
[2022-03-05] MEDS: AMIODARONE HCL 200 MG TABLET PO SCH (08:55)
[2022-03-05] MEDS: LEVOTHYROXINE 75 MCG TABLET PO SCH (08:55)
[2022-03-05] MEDS: GABAPENTIN 100 MG CAPSULE PO SCH (08:56)
[2022-03-05] MEDS: amLODIPine 5 MG TABLET PO SCH (08:56)
--- NOTE | 2022-03-05 11:30 | Operative Note ---
DATE OF OPERATION: 03/02/2022 PREOPERATIVE DIAGNOSIS: Left hip comminuted closed subtrochanteric femur fracture. POSTOPERATIVE DIAGNOSIS: Left hip comminuted closed subtrochanteric femur fracture. PROCEDURE PERFORMED: Open treatment and internal fixation of the left subtrochanteric femur fracture with intramedullary fixation using a long Koppel gamma nail size 10 mm diameter x 380 mm in length with a 125-degree angle using a 90 mm lag screw. SURGEON: Eduard Jerome M.D. LINEN CHECKER: Flaco Mckeon PA-C. This providers expertise and technical skill were required throughout the case. The PA assisted with preoperative coordination, intraoperative retraction, wound closure, and dressing and splint application, as well as postoperative documentation and care coordination. ANESTHESIA: General. DRAINS: None. SPECIMENS: None. COMPLICATIONS: None. ESTIMATED BLOOD LOSS: 100 mL. POSTOPERATIVE CONDITION: Stable. INDICATIONS FOR SURGERY: This is an 87-year-old female who was living alone independently and yesterday sustained a ground level fall with severe pain and inability to bear weight. She was taken to the Emergency Department and x-rays showed a comminuted, reverse obliquity subtrochanteric femur fracture. FINDINGS AT SURGERY: Comminuted, reverse obliquity subtrochanteric femur fracture. Post-fixation showed satisfactory hardware position and fracture alignment. PROCEDURE IN DETAIL: The patient had been seen in preoperative holding, and informed consent had been obtained after discussion of risks and benefits of surgery. Risks including, but not limited to, bleeding; infection; injury to nerves, blood vessels, other surrounding structures, anesthetic risks; nonunion or malunion of the fracture; failure of hardware fixation being significant risk given her advanced age and osteoporosis, nonunion or malunion of the fracture, this being an increased risk due to the reverse obliquity subtrochanteric location of the fracture, possibility of needing further surgery. She understood and wished to proceed. Correct operative site was marked in the preoperative holding, and the patient was taken to the operating room. General anesthesia induced. She was carefully positioned on the fracture table with the right lower extremity flexed at carefully padded out of the way. Left lower extremity was placed in some mild traction with internal rotation. Fluoroscopy was brought in to verify reduction. We then carefully prepped and draped the hip and lower extremity in normal sterile fashion and a timeout was performed verifying patient name, operative site, and plan. Incision was made in line with the femur proximal to the trochanter through skin and subcutaneous tissue. Hemostasis was obtained with Bovie cautery. We continued with the Bovie down through the IT band and then blunt finger dissection used to spread down onto the tip of the trochanter. A threaded guidewire was then positioned on fluoroscopic guidance and then drilled into the proximal femur. A minor adjustment was made after checking the lateral placing a second pin in better position. Once we were centered on both views, we then used the opening reamer to gain canal entry. A long ball-tip guidewire was then exchanged for the short guide pin and passed down the shaft of the femur to the level of the superior pole of the patella. We then used a ruler under fluoroscopic guidance to measure 380 mm. I then began reaming the canal sequentially with flexible reamers. We did get to a 12 and did have some chatter, so we chose a 10 x 380 125-degree long gamma nail. This was passed over the ball-tip guidewire and then the ball tip guidewire was removed. We positioned this so it would be central in the neck. A stab incision was made laterally where the sleeve had contacted skin. We then took the sleeve down to bone. We drilled the lateral cortex and then a threaded guide pin was passed up the femoral neck. We checked AP and lateral views to assure we were central on both and then took this just to the subchondral bone. A ruler was then used to measure a 90 mm lag screw. We then used the step reamer set at 90 to ream and then a 90 mm lag screw was opened. This was advanced until we were within 1 cm of the articular surface on both views and then we placed our locking screw in the proximal end the nail. Due to the reverse obliquity subtrochanteric nature of the fracture we did lock this without allowing sliding compression. We then removed the jig and guide pin from the proximal end of the nail and then went distally. We got perfect circles with fluoroscopy and then a stab incision was made over the static hole. I then used a freehand technique to drill through the static hole. Fluoroscopy was used to verify the drill was through the hole and then we removed the drill. Depth gauge was used and we measured 40 mm. A 40 mm distal interlock screw was opened and advanced until we got firm fixation of the cortex and then final fluoro images were taken, AP, lateral, proximal and distal and the fracture site was included in the proximal views. Those were saved. We irrigated copiously with saline. #1 Vicryl was used to close the IT band proximally. Monocryl was used for subcutaneous and then helder were used for skin. Sterile dressing was applied. The patient was then awakened and transferred to recovery in stable condition. Edited 04/11/2022 per hard copy for incorrect date of operation mljo SONIA:carolyn Job ID: [id number] Doc ID: [id number] Eduard Jerome MD
--- NOTE | 2022-03-05 13:23 | Discharge Summary ---
Discharge Provider Provider IMPORTANT FOLLOW-UP INFORMATION FOR PCP: Patient information: Note initiated : 03/05/22 at 1:22 pm Service Date, if different from initiated Date: [] Patient: Tammy Whelan 87 y/o F admitted on 03/01/22 for fall. Chief Complaint: [] Date of admission: 03/01/22 21:51 Discharge date: 03/05/22 Primary care physician: Zeke Garcias Consults: 03/01/22 Consult to Physician [CONS] Stat Comment: Consulting Provider: Logan Pringle Reason For Exam: Physician to Consult 03/01/22 18:12 Consult to Physician [CONS] Stat Comment: Consulting Provider: Eduard Jerome Reason For Exam: Physician to Consult COURSE Hospital Course Hospital course: Interval history: 87-year-old female with history of atrial fibrillation anticoagulated on amio darone and apixaban, history osteoporosis, knee arthritis with chronic pain. Patient was walking outside with her dog and her " knee gave out" fell and started having severe hip pain and was brought to the ER. Patient underlying severe pain otherwise review of system was unremarkable denied any presyncope no altered mental status no history suggestive of any seizure. Her vital signs within normal limits lab work-up unremarkable other than low albumin levels and slightly elevated glucose level. Her hip x-ray showing displaced oblique fracture of the proximal left femoral diaphysis 03/03/2022 Patient underwent open duction internal fixation yesterday Postoperatively patient feeling better Continued having some intermittent pain Working with physical therapy We will restart her home apixaban dose tomorrow Patient probably needs subacute rehab 03/04 Patient worked with physical therapy progressing well Pain control switched to p.o. [place] Patient needing subacute rehab 03/05 A/P: Left femur fracture status post ORIF 03/02/2022 Mechanical fall History of atrial fibrillation anticoagulated and on amiodarone Denied any history ischemic disease No history of CKD, no known diabetes Plan ER physician discussed with orthopedic surgeon and underwent surgery 03/02/2022 Patient has good oral intake and will discontinue IV fluid NS 75 mils per hour Telemetry monitoring Continue amiodarone We will restart Eliquis on 03/04/2022 pain control with norco 10 need SNF Atrial fibrillation Chronic anticoagulation with Eliquis EKG did not show any ischemic changes No history of any syncope or dizziness no chest symptoms Telemetry monitoring Continue amiodarone Diltiazem as needed Restart anticoagulation on 03/04/2022 Essential hypertension Monitor and restart home medications as needed Discharge diagnosis: Left hip fracture Secondary discharge diagnosis: History of A. fib hypertension Time Spent with Patient Time attestation: Total time spent providing and/or coordinating discharge services: Time spent: Greater than 30 minutes EXAM Constitutional Vitals: Temp Pulse Resp BP Pulse Ox 97.9 F 70 20 113/64 92 03/05/22 12:00 03/05/22 12:00 03/05/22 12:00 03/05/22 12:00 03/05/22 12:00 Discharge Data Data Completed and Pending Labs on day of discharge: Labs from last 24 hours 03/05/22 03/05/22 05:15 05:00 WBC 9.1 RBC 2.60 L Hgb 8.3 L Hct 26.7 L MCV 102.7 H MCH 31.9 MCHC 31.1 RDW 14.7 H Plt Count 226 MPV 9.4 Neut % (Auto) 71.1 Lymph % (Auto) 17.2 [place] % (Auto) 11.2 Eos % (Auto) 0.3 Baso % (Auto) 0.2 Lymph # (Auto) 1.57 [place] # (Auto) 1.02 H Eos # (Auto) 0.03 Baso # (Auto) 0.02 Absolute Neutrophils 6.49 Sodium 136 Potassium 4.2 Chloride 100 Carbon Dioxide 28 Anion Gap 8.0 BUN 9 Creatinine 0.7 GFR Calculation 77 Glucose 167 H Calcium 8.5 L Magnesium 2.0 Total Bilirubin 0.6 AST 15 ALT 9 Alkaline Phosphatase 65 Total Protein 5.5 L Albumin 3.1 L Globulin 2.4 Albumin/Globulin Ratio 1.3 Discharge Plan Patient/Caregiver Discharge Instructions Activity: as per physical therapy and increase activity as tolerated Diet: Regular Diet Prescriptions: New bisacodyl 10 mg Suppository 10 mg IN QDAY PRN (Reason: constipation) Qty: 12 0RF docusate sodium 100 mg Capsule 100 mg PO BID Qty: 60 0RF sennosides [Senna Lax] 8.6 mg Tablet 17.2 mg PO HS PRN (Reason: constipation) Qty: 30 0RF hydrocodone-acetaminophen 10-325 mg Tablet 1 tab PO Q6HP PRN (Reason: Per Pain Protocol) Qty: 20 0RF Continued meclizine 12.5 mg tablet 12.5 mg PO QDAY 0RF Eliquis 5 mg tablet 5 mg PO QHS 0RF amlodipine 5 mg tablet 5 mg PO QDAY 0RF levothyroxine 75 mcg tablet 75 mcg PO QDAY 0RF lidocaine 5 % adhesive patch,medicated 1 patch topical QDAY PRN (Reason: pain) Qty: 15 0RF Rx Instructions: Apply to most painful area for up to 12 hrs/day. memantine 10 mg tablet 10 mg PO BID 0RF amiodarone 200 mg tablet 200 mg PO BID 0RF gabapentin 100 mg capsule 100 mg PO .COMPLEX 0RF Hold Instructions: patient not currently taking Rx Instructions: 100 mg PO 1 tab qam, 2 tabs hs; Follow Up Plan Follow up with: Zeke Garcias DO [Primary Care Provider] - Eduard Jerome MD [Physician] - Patient Disposition: Xfer SNF Prognosis: Fair Rehab Potential: Fair I certify that the patient requires SNF services: Yes Overall status at discharge: patient is progressing back to baseline Discharge Orders: Discharge Order (Routine); Ordered 03/05/22 Ordered By: Eliud Hoskinssarah [facility] Deep Vein Thrombosis/Pulmonary Embolism Present on Admission: No
--- NOTE | 2022-03-08 06:57 | EKG ---
[facility] Minor Care Test Date: 2022-03-01 Pat Name: Tammy Whelan Department: ED Room: Gender: Female Card Reader: DEEPAK : 1935 Requested By: Josh Estes Order Number: [id number] Reading MD: Tejas Gorman Measurements Intervals [place] Rate: 73 P: 49 OH: 304 QRS: 10 QRSD: 136 T: -29 QT: 455 QTc: 502 Interpretive Statements Sinus rhythm Prolonged OH interval Right bundle branch block Baseline wander in lead(s) V5,V6 Electronically Signed On 03-08-2022 6:57:21 PDT by Tejas Gorman /store/[email or web address]/[id number]
== END 2022-03-05 14:45 ==
LOC: ED 17:36 → MEDSUR 21:51
PROVIDERS: ADMIT Internal Medicine; ATTEND Internal Medicine